=== PATIENT | male | born 1995 | race Caucasian/White ===

== ENCOUNTER 2018-09-12 22:45 | Emergency (ER) | payer OTHER ==
[2018-09-12 22:53] VITALS: BP 147/79
[2018-09-12] MEDS ORDERED: DIPHTH/TETANUS/ACEL. PERTUSSIS IM ONLY ONE (23:00)
--- NOTE | 2018-09-12 23:01 | ER Report ---
History and Physical Time Seen By MD: 22:48 HPI/ROS CHIEF COMPLAINT: Right thumb laceration HISTORY OF PRESENT ILLNESS: 22-year-old male, left-hand dominant, presents ambulatory to the ER with a cut to his right thumb area in the webspace. She thinks his last tetanus shots greater than 10 years. He shows good range of motion. He notes 2/10 pain at the site. Allergies: Coded Allergies: No Known Drug Allergies (Unverified , 09/12/18) Home Meds No Active Prescriptions or Reported Meds Reviewed Nurses Notes: Yes Old Medical Records Reviewed: Yes Constitutional Vital Sign - Last 24 Hours 09/12/18 22:53 Temp 98.9 Pulse 68 Resp 16 B/P (MAP) 147/79 Pulse Ox 92 O2 Delivery Room Air Physical Exam General appearance: Alert no distress. Respiratory: Chest is non tender, lungs are clear to auscultation. Cardiac: Regular rate and rhythm Extremities: Right hand with a laceration in the webspace DIFFERENTIAL DIAGNOSIS: After history and physical exam differential diagnosis was considered for hand laceration, thumb laceration, tendon laceration, nerve laceration, joint penetration Medical Decision Making ED Course/Re-evaluation ED Course Patient was admitted to an examination room. H&P was done. The differential diagnoses was considered. Patient with a right thumb laceration. Close examination reveals no deep penetration of the laceration. There is no tendon or joint involvement. Wound was repaired as noted below. Procedure: Laceration repair. Verbal consent was obtained from the patient. The 2.1 cm laceration on the right thumb web space was anesthetized in the usual fashion. The wound was scrubbed, draped and explored to its base with a gloved finger. There were no deep structures involved. No tendon injury was identified. The wound was repaired with 5-0 Prolene 4 sutures. The wound repair was simple. The procedure was performed by myself. Wound care was discussed, suture removal will be in 14 days. Decision to Disposition Date: Sep 12, 2018 Decision to Disposition Time: 23:00 Depart Departure Latest Vital Signs Vital Signs Date Time Temp Pulse Resp B/P (MAP) Pulse Ox O2 Delivery O2 Flow Rate FiO2 09/12/18 22:53 98.9 68 16 147/79 92 Room Air Impression: Primary Impression: Laceration of right thumb Condition: Improved Disposition: HOME OR SELF-CARE New Scripts No Active Prescriptions or Reported Meds Patient Instructions: Finger Laceration (ED) Additional Instructions: Perform daily wound care, keep covered with a Band-Aid Have stitches removed in 14 days Problem Qualifiers Primary Impression: Laceration of right thumb Encounter type: initial encounter Damage to nail status: without damage Foreign body presence: without foreign body Qualified Codes: S61.011A - Laceration without foreign body of right thumb without damage to nail, initial encounter SELAM VASQUEZ DO Sep 12, 2018 23:01
== END 2018-09-12 23:37 | disposition home or self-care (01) ==
LOC: ER 22:54
DX: S61.011A Laceration without foreign body of right thumb without damage to nail, initial encounter (principal)
CPT/HCPCS: 90471; 90715; 99283